=== PATIENT | female | born 1995 | race Caucasian/White ===

== ENCOUNTER 2024-07-17 10:45 | Outpatient (RCR) | payer BC, SELFPAY | END 2024-07-20 10:23 | disposition home or self-care (01) | PROVIDERS: PCP Family Medicine; Visit Provider Family Medicine | DX: Q05.2 Lumbar spina bifida with hydrocephalus (principal); L84 Corns and callosities; R26.9 Unspecified abnormalities of gait and mobility; Z51.89 Encounter for other specified aftercare | CPT/HCPCS: 97110; 97112; 97161 ==